=== PATIENT | female | born 1955 | race Caucasian/White ===

== ENCOUNTER 2021-10-02 08:56 | Outpatient (CLI) | payer BC, MEDICARE ==
[~2021-10-02] VITALS: Ht 170.2 cm; Wt 123.4 kg
[2021-10-02] VITALS (14 sets, daily range): BP systolic 112–141; BP diastolic 49–93; PULSE 58–62; TEMP 97.5
[~2021-10-02 08:56] MED LIST: AMBIEN 5MG TABLE5 MG PO; ASPI325T6 PO; CARDIZEM120 MG PO; COZAAR100 MG PO; DOXYCYCLINE 50M50 MG PO; DYRENIUM100 MG PO; ELIQUIS 5MG PO; LEVOXYL0.075 MG PO; LIPITOR 40MG TA40 MG PO; LOPRESSOR100 MG PO; MAXZIDE-25MG TA1 TAB PO; METOPROLOL100 MG PO; MILK OF MA400 MG/52 PO; MOBIC15 MG PO; NEXIUM24HROTC PO; NORCO 325 MG-7.1 TAB PO; PERIOSTAT; PRILOSEC 20MG20 MG PO; ROXICODONE 55 MG/TAB PO; SENOKOT8.6 MG PO; SERTRALINE100 MG PO; TAZTIA XT300 MG PO; TRIAMTERENE/HCT1 TAB PO; TYLENOL 500MG500 MG PO; ZOLOFT 100MG100 MG PO
--- NOTE | 2021-10-02 10:10 | NUR ---
WELFARE ADMINISTRATOR AWARE WE HAVE A LUNG BX, SPOKE TO LINDA
--- NOTE | 2021-10-02 14:39 | NUR ---
DC instructions reviewed with pt and , both express understanding. Respirations remain even and unlabored with sats in mid to high 90s on 2 L/min which pt wears at all times. She is steady with transfer from bed to wheelchair. Bandaid to mid upper back remains clean, dry and intact. INT DC'd with catheter intact. Pt assisted out to 's car by wheelchair with belongings.
== END 2021-10-02 14:58 | disposition home or self-care (01) ==
LOC: COL.RAD 08:56
DX: C34.90 Malignant neoplasm of unspecified part of unspecified bronchus or lung (principal)
CPT/HCPCS: J2250; J3010

== ENCOUNTER 2021-10-14 10:00 | Outpatient (CLI) | payer BC, MEDICARE ==
[~2021-10-14] VITALS: Ht 170.2 cm; Wt 129.3 kg
[2021-10-14 11:06] VITALS: BP 165/75; PULSE 56; TEMP 97.4
--- NOTE | 2021-10-14 11:24 | NUR ---
Report to Eugenio Hinton
[2021-10-14] MEDS ORDERED: TRELEGY ELLIPT1 EACH IH (11:44)
[2021-10-14] MEDS ORDERED: IPRATROPIUM BROM3 M1 IH (11:45)
== END 2021-10-14 12:45 | disposition home or self-care (01) ==
LOC: EUO 10:00
DX: Z45.2 Encounter for adjustment and management of vascular access device (principal); C85.19 Unspecified B-cell lymphoma, extranodal and solid organ sites
CPT/HCPCS: C1751